=== PATIENT | male | born 1985 | race African-American/Black ===

== ENCOUNTER 2017-05-20 21:00 | Observation (INO) | payer MEDICARE ==
[2017-05-20] MEDS ORDERED: CEFAZOLIN 1 GM in DEXTROSE 5%-WATER - 50 ML IVPB ONE (22:14)
--- NOTE | 2017-05-20 22:23 | PDOC ---
History of Present Illness - General History Source: Patient Exam Limitations: No Limitations - History of Present Illness Initial Comments: 05/20/17 22:23 Patient is a 29 year old male with no significant past medical history who presents to the ED with right wrist/forearm swelling. Patient reports getting an insect bite on Friday 05/18 that has progressively worsened. He now reports swelling, redness and pain. He states that he is able to move the wrist. Patient denies any fever, chills, diaphoresis, nausea, vomiting, SOB, chest pain , weakness or lightheadedness. ALL - NKA <Capri Espinoza - Last Filed: 05/20/17 22:31> <Isela Bello - Last Filed: 05/20/17 23:45> - General Chief Complaint: Wound Stated Complaint: HAND INJURY Time Seen by Provider: 05/20/17 21:28 Past History <Capri Espinoza - Last Filed: 05/20/17 22:31> - Immunization History Immunization Up to Date: Yes - Psycho/Social/Smoking Cessation Hx Anxiety: No Suicidal Ideation: No Smoking Status: Yes Smoking History: Smoker current status UNK Have you smoked in the past 12 months: Yes Number of Cigarettes Smoked Daily: 2 Information on smoking cessation initiated: No Hx Alcohol Use: No Drug/Substance Use Hx: No Substance Use Type: None <Isela Bello - Last Filed: 05/20/17 23:45> - Past Medical History Allergies/Adverse Reactions: Allergies Allergy/AdvReac Type Severity Reaction Status Date / Time No Known Allergies Allergy Verified 02/23/15 11:15 Home Medications: Ambulatory Orders No Home Medications 0 dose .ROUTE UTDICT 05/31/12 Review of Systems - Review of Systems Able to Perform ROS?: Yes Comments:: 05/20/17 22:24 GENERAL/CONSTITUTIONAL: No fever or chills. No weakness. HEAD, EYES, EARS, NOSE AND THROAT: No change in vision. No ear pain or discharge. No sore throat. CARDIOVASCULAR: No chest pain or shortness of breath. RESPIRATORY: No cough, wheezing, or hemoptysis. GASTROINTESTINAL: No nausea, vomiting, diarrhea or constipation. GENITOURINARY: No dysuria, frequency, or change in urination. MUSCULOSKELETAL: (+)right wrist/forearm pain, redness and swelling. No neck or back pain. SKIN: (+)right forearm insect bite site. No rash NEUROLOGIC: No headache, vertigo, loss of consciousness, or change in strength/ sensation. ENDOCRINE: No increased thirst. No abnormal weight change. HEMATOLOGIC/LYMPHATIC: No anemia, easy bleeding, or history of blood clots. ALLERGIC/IMMUNOLOGIC: No hives or skin allergy. <Capri Espinoza - Last Filed: 05/20/17 22:31> *Physical Exam - Vital Signs Last Vital Signs Temp Pulse Resp BP Pulse Ox 124/72 99 05/20/17 21:24 05/20/17 21:24 - Physical Exam Comments: 05/20/17 22:29 GENERAL: Awake, alert, and fully oriented, in no acute distress HEAD: No signs of trauma EYES: PERRLA, EOMI, sclera anicteric, conjunctiva clear ENT: Auricles normal inspection, hearing grossly normal, nares patent, oropharynx clear without exudates. Moist mucosa NECK: Normal ROM, supple, no lymphadenopathy, JVD, or masses LUNGS: Breath sounds equal, clear to auscultation bilaterally. No wheezes, and no crackles HEART: Regular rate and rhythm, normal S1 and S2, no murmurs, rubs or gallops ABDOMEN: Soft, nontender, normoactive bowel sounds. No guarding, no rebound. No masses EXTREMITIES: (+)Right hand: insect bite surrounded by area of erythema and tenderness extended from proximal 3rd of forearm to 4th and 5th MCP joint. Normal range of motion. No clubbing or cyanosis. NEUROLOGICAL: Cranial nerves II through XII grossly intact. Normal speech, normal gait SKIN: Warm, Dry, normal turgor, no rashes noted. <Capri Espinoza - Last Filed: 05/20/17 22:31> - Vital Signs Last Vital Signs Temp Pulse Resp BP Pulse Ox 124/72 99 05/20/17 21:24 05/20/17 21:24 <Isela Bello - Last Filed: 05/20/17 23:45> ED Treatment Course - LABORATORY CBC & Chemistry Diagram: 05/20/17 22:24 05/20/17 22:24 <Capri Espinoza - Last Filed: 05/20/17 22:31> - LABORATORY CBC & Chemistry Diagram: 05/20/17 22:24 05/20/17 22:24 - RADIOLOGY Radiology Studies Ordered: Category Date Time Status HAND- RIGHT [RAD] Stat Radiology 05/20/17 22:10 Ordered <Isela Bello - Last Filed: 05/20/17 23:45> Medical Decision Making - Medical Decision Making 05/20/17 23:43 Pt presents to the ED with rapidly progressing cellulitis of the R hand. No signs of systemic infection, but does have elevated wbc count. Will treat with ancef and admit for continued IV antibiotics. <Isela Bello - Last Filed: 05/20/17 23:45> *DC/Admit/Observation/Transfer - Attestations Scribe Attestion: 05/20/17 22:25 Documentation prepared by [facility], acting as medical office clerk for Isela Bello MD. <Capri Espinoza - Last Filed: 05/20/17 22:31> - Discharge Dispostion Admit: Yes Decision to Admit order Date/Time: 05/20/17 23:45 <Isela Bello - Last Filed: 05/20/17 23:45> Diagnosis at time of Disposition: Cellulitis Qualifiers: Site of cellulitis: extremity Site of cellulitis of extremity: upper extremity Laterality: left Qualified Code(s): L03.114 - Cellulitis of left upper limb - Discharge Dispostion Condition at time of disposition: Good
[2017-05-20] MEDS ORDERED: CEFAZOLIN (PRE-DOCKED) 50 ML IVPB ONE (22:29)
[2017-05-20 22:31] LABS: BASOPHIL 0.7 % (0-2.0); EOSINOPHIL 1.3 % (0-4.5); MCH 31.9 pg (25.7-33.7); MCHC 33.8 g/dl (32.0-35.9); MEAN CELL VOLUME 94.2 fl (80-96); NEUTROPHILS 73.9 % (42.8-82.8); PLATELET COUNT 205 K/MM3 (134-434); RDW 12.8 % (11.9-15.9); WHITE BLOOD COUNT 15.4 K/mm3 (4.0-10.0)
[2017-05-20 22:58] LABS: ALBUMIN 4.3 g/dl (3.4-5.0); ALK PHOS 67 U/L (45-117); ANION GAP 4 (8-16); BILIRUBIN,TOTAL 0.7 mg/dL (0.2-1.0); CO2 31 mmol/L (21-32); CREATININE 1.3 mg/dL (0.7-1.3); GLUCOSE,RANDOM 83 mg/dL (74-106); SGOT/AST 24 U/L (15-37); SGPT/ALT 34 U/L (12-78); TOT PROT 7.7 g/dl (6.4-8.2)
[2017-05-20 23:04] LABS: C-REACTIVE PROTEIN 5.2 MG/DL (0.00-0.3)
[2017-05-20 23:40] LABS: ERYTHROCYTE SEDIMENTATION RATE 4 mm/hr (0-10)
--- NOTE | 2017-05-21 00:03 | PN ---
Teaching Attending Note Name of Resident: Suly Jones ATTENDING PHYSICIAN STATEMENT I saw and evaluated the patient. I reviewed the resident's note and discussed the case with the resident. I agree with the resident's findings and plan as documented. SUBJECTIVE: 31 yo M with no pmhx who presents with Right. wrist forarm erythema and edema after insect bite on 05/18. States that since sunday his erythema has spread from wrist to forearm. No fevers or chills, had good ROM of that hand as per pt. OBJECTIVE: Physical: VS: Vital Signs Period Temp Pulse Resp BP Sys/Brito Pulse Ox Last 24 Hr 124/72 99 GEN: NAD, Resting in bed HEENT: NCAT, PERRL, Throat without erythema or exudates CARD: RRR S1, S2 RESP: CTAB ABD: BSX4, NTD to palpation EXT: R. Wrist to forearm erythmatous, win pinoint bite on lateral wrist. No crepitus. L. Arm without edema, Erythema or exudates, pulses intact, CBCD WBC 15.4 K/mm3 (4.0-10.0) H 05/20/17 22:24 RBC 4.30 M/mm3 (4.00-5.60) 05/20/17 22:24 Hgb 13.7 GM/dL (11.7-16.9) 05/20/17 22:24 Hct 40.5 % (35.4-49) 05/20/17 22:24 MCV 94.2 fl (80-96) 05/20/17 22:24 MCHC 33.8 g/dl (32.0-35.9) 05/20/17 22:24 RDW 12.8 % (11.9-15.9) 05/20/17 22:24 Plt Count 205 K/MM3 (134-434) 05/20/17 22:24 MPV 9.0 fl (7.5-11.1) 05/20/17 22:24 CMP Sodium 137 mmol/L (136-145) 05/20/17 22:24 Potassium 3.8 mmol/L (3.5-5.1) 05/20/17 22:24 Chloride 102 mmol/L (98-107) 05/20/17 22:24 Carbon Dioxide 31 mmol/L (21-32) 05/20/17 22:24 Anion Gap 4 (8-16) L 05/20/17 22:24 BUN 19 mg/dL (7-18) H 05/20/17 22:24 Creatinine 1.3 mg/dL (0.7-1.3) 05/20/17 22:24 Creat Clearance w eGFR > 60 (>60) 05/20/17 22:24 Random Glucose 83 mg/dL (74-106) 05/20/17 22:24 Calcium 9.0 mg/dL (8.5-10.1) 05/20/17 22:24 Total Bilirubin 0.7 mg/dL (0.2-1.0) 05/20/17 22:24 AST 24 U/L (15-37) 05/20/17 22:24 ALT 34 U/L (12-78) 05/20/17 22:24 Alkaline Phosphatase 67 U/L (45-117) 05/20/17 22:24 Total Protein 7.7 g/dl (6.4-8.2) 05/20/17 22:24 Albumin 4.3 g/dl (3.4-5.0) 05/20/17 22:24 ASSESSMENT AND PLAN: 31 yo M with no pmhx who presents with Right. wrist forarm erythema and edema after insect bite on 05/18. Being admitted for Forarm Cellulitis on Right 1.) Right Forearm Cellulitis - C/W Cefazolin 1g Q 8 - No risk factors for MRSA - FU hand Xray - Chk. ESR/CRP 2.) Dvt Ppx - Low Risk - Ambulate Place in OBS
--- NOTE | 2017-05-21 00:16 | HP ---
CHIEF COMPLAINT: " Pain in the right forearm after insect bite" PCP: None HISTORY OF PRESENT ILLNESS: Patient is a 31 year old male with no significant past medical history presented to the ED with the chief complaint of pain in the right forearm after the insect bite x 2 days ago. As per the patient, he was apparently well until 2 days ago. While he was at a park 2days ago, there were lots of bugs around, didn't notice any insect bite but woke up the next day with pain in the right forearm. He saw a small pimple like lesion, squeezed it and a small amount of pus came out. Swelling started increasing in size, it was more painful, applied peroxide but didn't help hence he came in to the ED for further evaluation. He didn't take any medications at home. Denies fever, chills, rigors, sweating, chest pain, sob, cough, abdominal pain, nausea or vomiting. No rashes. Bowel/Bladder habit normal. Sleep/Appetite normal. ER course was notable for: (1) Afebrile, hemodynamically stable, WBC-15.4; CRP 5.2 (2) X-ray of the hand (3) Cefazolin 1gm Recent Travel: None PAST MEDICAL HISTORY: None PAST SURGICAL HISTORY: None Social History: Smoking: Occasional Alcohol: Occasional Drugs: Denies Family History: Unknown Allergies No Known Allergies Allergy (Verified 02/23/15 11:15) HOME MEDICATIONS: Home Medications Medication Instructions Recorded No Home Medications 0 dose .ROUTE UTDICT 05/31/12 REVIEW OF SYSTEMS CONSTITUTIONAL: Absent: fever, chills, diaphoresis, generalized weakness, malaise, loss of appetite, weight change HEENT: Absent: rhinorrhea, nasal congestion, throat pain, throat swelling, difficulty swallowing, mouth swelling, ear pain, eye pain, visual changes CARDIOVASCULAR: Absent: chest pain, syncope, palpitations, irregular heart rate, lightheadedness , peripheral edema RESPIRATORY: Absent: cough, shortness of breath, dyspnea with exertion, orthopnea, wheezing, stridor, hemoptysis GASTROINTESTINAL: Absent: abdominal pain, abdominal distension, nausea, vomiting, diarrhea, constipation, melena, hematochezia GENITOURINARY: Absent: dysuria, frequency, urgency, hesitancy, hematuria, flank pain, genital pain MUSCULOSKELETAL: Present: Swelling and redness around the insect bite area in the right forearm Absent: myalgia, arthralgia, joint swelling, back pain, neck pain SKIN: Absent: rash, itching, pallor HEMATOLOGIC/IMMUNOLOGIC: Absent: easy bleeding, easy bruising, lymphadenopathy, frequent infections ENDOCRINE: Absent: unexplained weight gain, unexplained weight loss, heat intolerance, cold intolerance NEUROLOGIC: Absent: headache, focal weakness or paresthesias, dizziness, unsteady gait, seizure, mental status changes, bladder or bowel incontinence PSYCHIATRIC: Absent: anxiety, depression, suicidal or homicidal ideation, hallucinations. PHYSICAL EXAMINATION GENERAL: Young male, sitting comfortably in bed, Awake, alert, and fully oriented, in no acute distress. HEAD: Normal with no signs of trauma. EYES: EOM intact, no pallor or icterus. EARS, NOSE, THROAT: Ears normal. Moist mucous membranes. NECK: Supple. LUNGS: Breath sounds equal, clear to auscultation bilaterally. No wheezes, and no crackles. No accessory muscle use. HEART: Regular rate and rhythm, normal S1 and S2 without murmur. ABDOMEN: Soft, nontender, not distended, normoactive bowel sounds, no guarding, no rebound, no masses. No hepatomegaly or splenomegaly. MUSCULOSKELETAL: Normal range of motion at all joints. No bony deformities or tenderness. No CVA tenderness. LEFT UPPER EXTREMITY: 2+ pulses, warm, well-perfused. No cyanosis. No clubbing. No peripheral edema. RIGHT UPPER EXTREMITY: A small papule like lesion, around 0.5 cm x 0.5 cm located in the medial aspect of the right forearm, erythema +(area marked) with minimal swelling approx 1. 5 x 2 cm; ROM normal, 2+ pulses, warm, well- perfused. No cyanosis. No clubbing. LOWER EXTREMITIES: 2+ pulses, warm, well-perfused. No calf tenderness. No peripheral edema. NEUROLOGICAL: No facial droop; power 5/5 in all ext; Cranial nerves II-XII intact. Normal speech. Gait normal. PSYCHIATRIC: Cooperative. Good eye contact. Appropriate mood and affect. SKIN: Warm, dry, normal turgor, no rashes or lesions noted, normal capillary refill. ASSESSMENT/PLAN: Patient is a 31 year old male with no significant past medical history presented to the ED with the chief complaint of pain in the right forearm after the insect bite x 2 days ago. # Cellulitis of the right forearm most likely secondary to an insect bite; no h/o fever; no antibiotics taken at home On arrival, he was afebrile, hemodynamically stable, WBC 15.4 with no shift, CRP- 5.2 In the ED, received IV Cefazolin Doesn't meet sepsis criteria, doesn't look infected, no risk factors of MRSA , patient clinically looks well, placed in Obs/Med-surg Continue IV Cefazolin 1gm Q8H Pending Hand x-ray report, pending Blood cultures If patient's WBC improves, is afebrile, would consider treating him outpatient. Repeat CBC with differential tomorrow # FEN Not on IV fluids, can tolerate PO Electrolytes WNL, will repeat Regular diet # Prophylaxis For DVT: On SCDs, ambulating For GI: Not indicated # Code status: Full Code # Dispo: Placed in observation. Duration of stay likely 1-2 days. Illness, Investigation and Plan of care explained to the patient. He verbalized understanding. Case seen and discussed with Dr. Momin. Visit type - Emergency Visit Emergency Visit: Yes ED Registration Date: 05/20/17 Care time: The patient presented to the Emergency Department on the above date and was hospitalized for further evaluation of their emergent condition. - New Patient This patient is new to me today: Yes Date on this admission: 05/20/17 - Critical Care Critical Care patient: No
[2017-05-21] MEDS ORDERED: ceFAZolin SODIUM 1 GM VIAL ONE ×2 (01:22→10:01)
[2017-05-21] MEDS ORDERED: DEXTROSE 5%-WATER - 50 ML IVPB ONE ×2 (01:22→10:01)
[2017-05-21] MEDS: CEFAZOLIN 1 GM in DEXTROSE 5%-WATER - 50 ML IVPB SCH ×2 (01:43→10:12)
[2017-05-21 03:01] VITALS: BMI 26.2
[2017-05-21 06:59] LABS: BASOPHIL 0.5 % (0-2.0); EOSINOPHIL 1.4 % (0-4.5); MCH 31.1 pg (25.7-33.7); MCHC 33.2 g/dl (32.0-35.9); MEAN CELL VOLUME 93.7 fl (80-96); MEAN PLT VOLUME 9.2 fl (7.5-11.1); NEUTROPHILS 70.4 % (42.8-82.8); PLATELET COUNT 200 K/MM3 (134-434); RDW 13.1 % (11.9-15.9); WHITE BLOOD COUNT 13.9 K/mm3 (4.0-10.0)
[2017-05-21 07:42] LABS: ANION GAP 8 (8-16); CALCIUM 8.8 mg/dL (8.5-10.1); CO2 30 mmol/L (21-32); CREATININE 1.1 mg/dL (0.7-1.3); GLUCOSE,RANDOM 87 mg/dL (74-106)
--- NOTE | 2017-05-21 10:56 | DS ---
Physical Exam: SUBJECTIVE: Patient seen and examined at the bedside, he reports his right hand is slightly improved, he is able to move it freely. OBJECTIVE: Will need Keflex 500mg BID x7 more days patient instructed to return to the ER if he experiences: -Fevers -Worsening swelling of your right hand -Streaks up your hand -Worsening pain and unable to move your hand -Elevated your hand at all times, it will help with the swelling - Betadine soaks with the infected area (apply 10 drops of betadine to 4-5 cups of warm water) twice per day After soaks, apply bacitracin to the infected area. Vital Signs Period Temp Pulse Resp BP Sys/Brito Pulse Ox Last 24 Hr 97.5 F-98.8 F 70-82 17-20 117-130/75-82 98-99 PHYSICAL EXAM GENERAL: Awake, alert, and fully oriented, in no acute distress. HEAD: Normal with no signs of trauma. EYES: EOM intact, no pallor or icterus. EARS, NOSE, THROAT: Ears normal. Moist mucous membranes. NECK: Supple. LUNGS: Breath sounds equal, clear to auscultation bilaterally. No wheezes, and no crackles. No accessory muscle use. HEART: Regular rate and rhythm, normal S1 and S2 without murmur. ABDOMEN: Soft, nontender, not distended, normoactive bowel sounds, no guarding, no rebound, no masses. No hepatomegaly or splenomegaly. MUSCULOSKELETAL: Normal range of motion at all joints. No bony deformities or tenderness. No CVA tenderness. LEFT UPPER EXTREMITY: 2+ pulses, warm, well-perfused. No cyanosis. No clubbing. No peripheral edema. RIGHT UPPER EXTREMITY: A small papule like lesion, around 0.5 cm x 0.5 cm located in the medial aspect of the right forearm, erythema + (area marked and erythema has not increased beyond markings) still with minimal swelling approx, ROM normal, 2+ pulses, warm, well-perfused. LOWER EXTREMITIES: 2+ pulses, warm, well-perfused. No calf tenderness. No peripheral edema. NEUROLOGICAL: No facial droop; power 5/5 in all ext; Cranial nerves II-XII intact. Normal speech. Gait normal. PSYCHIATRIC: Cooperative. Good eye contact. Appropriate mood and affect. SKIN: Warm, dry, normal turgor, no rashes or lesions noted, normal capillary refill. LABS Laboratory Results - last 24 hr 05/21/17 05/21/17 05:50 05:50 WBC 13.9 H RBC 4.37 Hgb 13.6 Hct 40.9 MCV 93.7 MCH 31.1 MCHC 33.2 RDW 13.1 Plt Count 200 MPV 9.2 Neutrophils % 70.4 Lymphocytes % 20.1 Monocytes % 7.6 Eosinophils % 1.4 Basophils % 0.5 Sodium 139 Potassium 3.7 Chloride 101 Carbon Dioxide 30 Anion Gap 8 BUN 16 Creatinine 1.1 Random Glucose 87 Calcium 8.8 HOSPITAL COURSE: Date of Admission:05/20/17 Date of Discharge: 05/21/17 ASSESSMENT/PLAN: Patient is a 31 year old male with no significant past medical history presented to the ED with the chief complaint of pain in the right forearm after the insect bite x 2 days ago. Cellulitis of the right forearm - improving/will need outpatient antibiotics A/P: Likely secondary to insect bite. Remains afebrile, WBC trending from 15.4>13.9 Received 3 doses of IV Cefazolin during hospital stay Will continue Keflex 500mg BID x 7 days Clinically continues to look well, does not meet sepsis criteria Blood cultures are pending Hand xray without any acute fracture, minimal swelling, old fracture noted Betadine soaks to affected area twice per day Bacitracin to area of insect bite/papule like lesion Hand elevation Sign/symptoms to return to the ER discussed with patient who verbalized understanding Disposition: Outpatient antibiotics x 7 days, Bacitracin to small papule like lesion, hand elevation, Betadine soaks. Follow up at clinic or Dr. Lloyd. Patient does not have insurance at this time but willing to go to the clinic for follow based on sliding scale. Minutes to complete discharge: 60 Discharge Summary Reason For Visit: CELLULITIS Current Active Problems Cellulitis (Acute) Condition: Fair - Instructions Diet, Activity, Other Instructions: Mr. Escudero: Your were treated at [facility] for cellulitis (skin infection) on your right outer aspect of your hand. Your antibitoc have been called into [facility]. Antibiotics: Keflex 500mg twice per day for 7 days, start taking Keflex tonight because we gave you antibiotics this morning intravenously. Take Keflex at 8am and 8pm until complete - 7 days total. It is important that you have a follow up visit with a physician within 1 week of discharge so that they can make sure your infection is getting better. Please go to either (1) [facility] [facility], [address] [place] [address], or (2) Dr. Lloyd (phone no. in your discharge packet). Please call his office first and see how much he may charge you the visit. Please return to the ER if you experience the following: -Fevers -Worsening swelling of your right hand -Streaks up your hand -Worsening pain and unable to move your hand Hand care: Elevated your hand at all times, it will help with the swelling Betadine soaks with the infected area (apply 10 drops of betadine to 4-5 cups of warm water) twice per day After soaks, apply bacitracin to the infected area. Bacitracin can be purchased over the counter. Please call me if you have any questions. Kelseyjuliane Quita @ [facility] [phone] Referrals: Quentin Sullivan MD [Staff Physician] - Disposition: HOME - Home Medications Comprehensive Discharge Medication List: Ambulatory Orders No Home Medications 0 dose .ROUTE UTDICT 05/31/12 Cephalexin [Keflex] 500 mg PO BID #14 capsule 05/21/17 This patient is new to me today: Yes Date on this admission: 05/21/17 Emergency Visit: Yes ED Registration Date: 05/20/17 Care time: The patient presented to the Emergency Department on the above date and was hospitalized for further evaluation of their emergent condition. Critical Care patient: No - Discharge Referral Referred to [facility] Yes Physician Referral: Quentin Lloyd MD ([facility])
[2017-05-21] MEDS ORDERED: BACITRACIN 15 GM TUBE TOPICAL OINTMENT TP SCH (11:00)
[2017-05-21 11:45] VITALS: BP 105/64; PULSE 77; TEMP 98.5
== END 2017-05-21 12:52 | disposition home or self-care (01) ==
LOC: JER 21:00 → JERBED 23:45 → J7W 05-21 01:07
PROVIDERS: ADMIT Internal Medicine; ATTEND Nurse Practitioner Family
DX: L03.113 Cellulitis of right upper limb (principal); S50.861A Insect bite (nonvenomous) of right forearm, initial encounter; W57.XXXA Bitten or stung by nonvenomous insect and other nonvenomous arthropods, initial encounter; Y93.89 Activity, other specified; Y92.830 Public park as the place of occurrence of the external cause; Y99.8 Other external cause status
CPT/HCPCS: 36415; 73130-TC-RT; 80048; 80053; 85025; 85651; 86140; 87040; 99285-25; G0378

== ENCOUNTER 2017-05-26 21:34 | Emergency (ER) | payer SELFPAY ==
[2017-05-26 21:41] VITALS: BP 129/78; PULSE 73; TEMP 98; BMI 26.3
--- NOTE | 2017-05-26 22:42 | PDOC ---
History of Present Illness - General History Source: Patient, Old Records Exam Limitations: No Limitations - History of Present Illness Initial Comments: 05/26/17 22:58 Patient is a 31 year old male with past medical history of recent discharge () who presents to the ED with right wrist swelling. Patient reports getting an insect bite on Friday 05/18 that has progressively worsened. The patient states that his does not have any pain. He denies fever, nausea, shortness of breath, and vomiting. <Vignesh Tejada - Last Filed: 05/27/17 01:09> <Becki Watson - Last Filed: 05/30/17 05:25> - General Chief Complaint: Revisit,Wound Recheck Stated Complaint: ER REVIST Time Seen by Provider: 05/26/17 22:38 Past History <Vignesh Tejada - Last Filed: 05/27/17 01:09> - Past Medical History Other medical history: denies - Immunization History Immunization Up to Date: Yes - Suicide/Smoking/Psychosocial Hx Smoking Status: Yes Smoking History: Current every day smoker Have you smoked in the past 12 months: Yes Number of Cigarettes Smoked Daily: 1 Information on smoking cessation initiated: No 'Breaking Loose' booklet given: 05/21/17 Hx Alcohol Use: No Drug/Substance Use Hx: No Substance Use Type: None <Becki Watson - Last Filed: 05/30/17 05:25> - Past Medical History Allergies/Adverse Reactions: Allergies Allergy/AdvReac Type Severity Reaction Status Date / Time No Known Allergies Allergy Verified 05/26/17 21:41 Home Medications: Ambulatory Orders Cephalexin [Keflex] 500 mg PO BID #14 capsule 05/21/17 Review of Systems - Review of Systems Able to Perform ROS?: Yes Comments:: 05/26/17 23:48 GENERAL/CONSTITUTIONAL: No fever or chills. No weakness. SKIN: (+) Fluid filled bug bite on right wrist <Vignesh Tejada - Last Filed: 05/27/17 01:09> *Physical Exam - Vital Signs Last Vital Signs Temp Pulse Resp BP Pulse Ox 98 F 73 18 129/78 97 05/26/17 21:37 05/26/17 21:37 05/26/17 21:37 05/26/17 21:37 05/26/17 21:37 - Physical Exam Comments: 05/26/17 23:48 GENERAL: Awake, alert, and fully oriented, in no acute distress HEAD: No signs of trauma EYES: PERRLA, EOMI, sclera anicteric, conjunctiva clear ENT: Auricles normal inspection, hearing grossly normal, nares patent, oropharynx clear without exudates. Moist mucosa NECK: Normal ROM, supple, no lymphadenopathy, JVD, or masses LUNGS: Breath sounds equal, clear to auscultation bilaterally. No wheezes, and no crackles HEART: Regular rate and rhythm, normal S1 and S2, no murmurs, rubs or gallops ABDOMEN: Soft, nontender, normoactive bowel sounds. No guarding, no rebound. No masses EXTREMITIES: (+) 3 cm bolus lesion no surround erythema no induration Large fluid filled insect bite. Normal range of motion, no edema. No clubbing or cyanosis. No cords, erythema, or tenderness NEUROLOGICAL: Cranial nerves II through XII grossly intact. Normal speech, normal gait SKIN: Warm, Dry, normal turgor, no rashes or lesions noted. <Vignesh Tejada - Last Filed: 05/27/17 01:09> - Vital Signs Last Vital Signs Temp Pulse Resp BP Pulse Ox 98 F 73 18 129/78 97 05/26/17 21:37 05/26/17 21:37 05/26/17 21:37 05/26/17 21:37 05/26/17 21:37 <Becki Watson - Last Filed: 05/30/17 05:25> Procedures - Incision and Drainage I&D Site: Right: Arm (Wrist) Progress: 05/27/17 01:10 Area was prepped with alcohol and bolus was punctured with sterile 25 gauge needle 2 times with impression of serosanguinous fluid. Patient tolerated well + hemostasis. <Vignesh Tejada - Last Filed: 05/27/17 01:09> Medical Decision Making - Medical Decision Making CORRECTION to scribe note- Procedure note should read that the "bulla" was punctured, not "bolus" as is written. <Becki Watson - Last Filed: 05/30/17 05:25> *DC/Admit/Observation/Transfer - Attestations Scribe Attestion: 05/26/17 23:48 Documentation prepared by Vignesh Tejada, acting as medical terminologist for Becki Watson MD. <Vignesh Tejada - Last Filed: 05/27/17 01:09> - Discharge Dispostion Admit: No <Becki Watson - Last Filed: 05/30/17 05:25> Diagnosis at time of Disposition: Skin bulla - Discharge Dispostion Disposition: HOME Condition at time of disposition: Stable - Patient Instructions Printed Discharge Instructions: DI for Blisters Additional Instructions: DRESS WITH DRY GAUZE UNTIL THE WOUND DRIES. RETURN IF ANY SEVERE PAIN, SWELLING , REDNESS, OR ANY OTHER CONCERNS.
== END 2017-05-26 23:14 | disposition home or self-care (01) ==
LOC: JER 21:34
PROC: 0H9DXZZ Drainage of Right Lower Arm Skin, External Approach (ICD-10-PCS; principal; 2017-05-26)
DX: R23.8 Other skin changes (principal); S60.861A Insect bite (nonvenomous) of right wrist, initial encounter; W57.XXXA Bitten or stung by nonvenomous insect and other nonvenomous arthropods, initial encounter; Y93.89 Activity, other specified; Y92.89 Other specified places as the place of occurrence of the external cause; Y99.8 Other external cause status; F17.210 Nicotine dependence, cigarettes, uncomplicated
CPT/HCPCS: 99281-25

== ENCOUNTER 2018-01-08 11:03 | Emergency (ER) | payer OTHER ==
[2018-01-08 11:08] VITALS: BP 130/82; PULSE 85; TEMP 98.3; BMI 26.6
--- NOTE | 2018-01-08 11:53 | PDOC ---
History of Present Illness - General Chief Complaint: Pain Stated Complaint: SWOLLEN FEET Time Seen by Provider: 01/08/18 11:18 - History of Present Illness Initial Comments: 32-year-old male presents for evaluation of bilateral foot pain after playing basketball. He states he had wounds on the bottom of his feet because his sneakers were too big. He is here for further evaluation. He denies prior problems. Describes this pain is achy at times exacerbated with weightbearing only with rest and free of radiation or prior problems like this in the past 01/08/18 11:48 Past History - Past Medical History Allergies/Adverse Reactions: Allergies Allergy/AdvReac Type Severity Reaction Status Date / Time No Known Allergies Allergy Verified 01/08/18 11:05 COPD: No - Immunization History Immunization Up to Date: Yes - Suicide/Smoking/Psychosocial Hx Smoking Status: Yes Smoking History: Current every day smoker Have you smoked in the past 12 months: Yes Number of Cigarettes Smoked Daily: 1 Information on smoking cessation initiated: Yes 'Breaking Loose' booklet given: 01/08/18 Hx Alcohol Use: No Drug/Substance Use Hx: No Substance Use Type: None Review of Systems - Review of Systems All Other Systems: Reviewed and Negative *Physical Exam - Vital Signs Last Vital Signs Temp Pulse Resp BP Pulse Ox 98.3 F 85 18 130/82 100 01/08/18 11:06 01/08/18 11:06 01/08/18 11:06 01/08/18 11:06 01/08/18 11:06 - Physical Exam Comments: Bilateral feet and ankles normal skin color and temperature is full range of motion which is nonpainful no tenderness there are 2 circumferential wounds on the plantar aspect of the lateral feet about a centimeter in circumference. There is loose skin covering the blisters that have been opened. The surrounding skin is normal color and temperature. There is no indication of infection the wounds are dry. 01/08/18 11:49 Medical Decision Making - Medical Decision Making Recommended to keep the wounds clean and dry may wash with soap and water and leave open to air cover when weight-bearing return to the emergency room if symptoms increase or go and resolve prior to follow-up with his primary care doctor 01/08/18 11:50 *DC/Admit/Observation/Transfer Diagnosis at time of Disposition: Blister - Discharge Dispostion Disposition: HOME Condition at time of disposition: Stable Decision to Admit order: No - Referrals Referrals: Rowena Shah MD [Primary Care Provider] - - Patient Instructions Printed Discharge Instructions: Blisters, DI for Blisters Additional Instructions: Keep wounds clean and dry may wash with soap and water. Weight-bear as tolerated. Return to the emergency room if symptoms go on resolve or worsen prior to follow-up with her primary care provider - Post Discharge Activity
== END 2018-01-08 12:14 | disposition home or self-care (01) ==
LOC: JERFT 11:03
DX: S90.822A Blister (nonthermal), left foot, initial encounter (principal); S90.821A Blister (nonthermal), right foot, initial encounter; X50.0XXA Overexertion from strenuous movement or load, initial encounter; Y93.67 Activity, basketball; Y92.310 Basketball court as the place of occurrence of the external cause; Y99.8 Other external cause status
CPT/HCPCS: 99281-25

== ENCOUNTER 2019-06-23 03:56 | Emergency (ER) | payer BC, OTHER ==
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
[2019-06-23 04:29] VITALS: BMI 26.6
[2019-06-23] MEDS ORDERED: METHOCARBAMOL 500 MG TABLET PO ONE (04:32)
[2019-06-23] MEDS ORDERED: KETOROLAC TROMETHAMINE 60 MG/2 ML VIAL IM ONE (04:32)
[2019-06-23] MEDS ORDERED: LIDOCAINE 5% TOPICAL PATCH TP ONE (04:33)
[2019-06-23] MEDS ORDERED: METHOCARBAMOL 500 MG TABLET ONE (04:39)
[2019-06-23] MEDS ORDERED: KETOROLAC TROMETHAMINE 60 MG/2 ML VIAL ONE (04:40)
[2019-06-23] MEDS ORDERED: LIDOCAINE 5% TOPICAL PATCH ONE (04:40)
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
[2019-06-23] MEDS ORDERED: ACETAMINOPHEN 500 MG TABLET (FP) PO ONE (12:43)
[2019-06-23] MEDS ORDERED: ACETAMINOPHEN 325 MG TABLET (FP) ONE (12:56)
[2019-06-23 13:21] VITALS: BP 139/81; PULSE 68; TEMP 98.4
--- NOTE | 2019-06-23 15:53 | EKG ---
Test Reason : Blood Pressure : / mmHG Vent. Rate : 058 BPM Atrial Rate : 058 BPM P-R Int : 166 ms QRS Dur : 090 ms QT Int : 400 ms P-R-T Axes : 052 064 059 degrees QTc Int : 392 ms SINUS BRADYCARDIA OTHERWISE NORMAL ECG NO PREVIOUS ECGS AVAILABLE Confirmed by DARIAN RODRIGUEZ MD ([id number]) on 06/23/2019 3:53:05 PM Referred By: Confirmed By:DARIAN RODRIGUEZ MD
[2019-06-23] MEDS ORDERED: LIDOCAINE PATCH REMOVAL MC SCH (22:00)
== END 2019-06-23 14:20 | disposition short-term general hospital (02) ==
LOC: JER 03:56
DX: G95.20 Unspecified cord compression (principal); S14.159A Other incomplete lesion at unspecified level of cervical spinal cord, initial encounter; V49.88XA Car occupant (driver) (passenger) injured in other specified transport accidents, initial encounter; Y92.414 Local residential or business street as the place of occurrence of the external cause; W22.12XA Striking against or struck by front passenger side automobile airbag, initial encounter; Y93.89 Activity, other specified; Y99.8 Other external cause status
CPT/HCPCS: 72125-TC; 72128-TC; 72141-TC; 93005; 93010; 99285-25

== ENCOUNTER 2019-09-14 20:30 | Emergency (ER) | payer BC ==
[2019-09-14 20:41] VITALS: BP 118/76; PULSE 82; TEMP 97.8; BMI 26.6
[2019-09-14] MEDS ORDERED: KETOROLAC TROMETHAMINE 60 MG/2 ML VIAL IM ONE (21:10)
[2019-09-14] MEDS ORDERED: KETOROLAC TROMETHAMINE 60 MG/2 ML VIAL ONE (21:13)
--- NOTE | 2019-09-14 21:35 | PDOC ---
History of Present Illness - General Chief Complaint: Back Pain Stated Complaint: LOWER BACK PAIN Time Seen by Provider: 09/14/19 21:05 - History of Present Illness Initial Comments: 09/14/19 21:32 33-year-old male without comorbidities presents for lower back pain after fall 3 days ago. No radicular or systemic symptoms. No loss of bowel bladder function or saddle paresthesias. Past History - Past Medical History Allergies/Adverse Reactions: Allergies Allergy/AdvReac Type Severity Reaction Status Date / Time No Known Allergies Allergy Verified 09/05/19 11:14 Home Medications: Ambulatory Orders Cyclobenzaprine HCl [Flexeril 10 mg] 10 mg PO HS PRN #10 tablet 09/14/19 Ibuprofen [Motrin -] 600 mg PO TID #30 tablet 09/14/19 COPD: No - Immunization History Immunization Up to Date: Yes - Psycho Social/Smoking Cessation Hx Smoking Status: Yes Smoking History: Current some day smoker Have you smoked in the past 12 months: Yes Number of Cigarettes Smoked Daily: 2 Information on smoking cessation initiated: No 'Breaking Loose' booklet given: 01/08/18 Hx Alcohol Use: No Drug/Substance Use Hx: No Substance Use Type: None Review of Systems - Review of Systems Musculoskeletal: Yes: Back Pain *Physical Exam - Vital Signs Last Vital Signs Temp Pulse Resp BP Pulse Ox 97.8 F 82 19 118/76 97 09/14/19 20:37 09/14/19 20:37 09/14/19 20:37 09/14/19 20:37 09/14/19 20:37 - Physical Exam 09/14/19 21:32 Lumbar spine skin color and temperature normal range of motion is limited. No midline tenderness. Moderate right and left paralumbar musculature spasm and tenderness 5 out of 5 strength bilateral lower extremities without gross sensorimotor deficits neurovascular intact. ED Treatment Course - RADIOLOGY Radiology Studies Ordered: Category Date Time Status SPINE-LUMBAR ONLY [RAD] Stat Radiology 09/14/19 21:10 Taken - Medications Given in the ED: ED Medications Discontinued Medications Generic Name Dose Route Start Last Admin Trade Name Freq PRN Reason Stop Dose Admin Ketorolac Tromethamine 60 mg 09/14/19 21:10 09/14/19 21:30 Toradol Injection - IM 09/14/19 21:11 60 mg ONCE ONE Administration Medical Decision Making - Medical Decision Making 09/14/19 21:33 X-rays of the lumbar spine show mild straightening of the lumbar lordosis will treat with Toradol in the emergency room Motrin and Flexeril at home follow-up with neurosurgery Discharge - Discharge Information Problems reviewed: Yes Clinical Impression/Diagnosis: Lumbar contusion, Lumbar strain Condition: Stable Disposition: HOME - Admission No - Follow up/Referral Referrals: Sukhi Jean MD, [facility] [Staff Physician] - - Patient Discharge Instructions Additional Instructions: Return to the emergency room for worsening symptoms. Do not take the Motrin until tomorrow evening at this time. You were given an injection of a long- acting anti-inflammatory. You may start the muscle relaxer 1 tablet before bedtime this will help your back pain. Follow-up with neurosurgery in 2 to 3 days for further evaluation and treatment options and return to the emergency room should symptoms worsen. - Post Discharge Activity Work/Back to School Note: Back to Work
== END 2019-09-14 21:43 | disposition home or self-care (01) ==
LOC: JERFT 20:30
PROC: 3E0233Z Introduction of Anti-inflammatory into Muscle, Percutaneous Approach (ICD-10-PCS; principal; 2019-09-14)
DX: S39.012A Strain of muscle, fascia and tendon of lower back, initial encounter (principal); S30.0XXA Contusion of lower back and pelvis, initial encounter; M62.830 Muscle spasm of back; W10.8XXA Fall (on) (from) other stairs and steps, initial encounter; Y93.89 Activity, other specified; Y92.211 Elementary school as the place of occurrence of the external cause; Y99.0 Civilian activity done for income or pay
CPT/HCPCS: 72100-TC-FY; 99282-25

== ENCOUNTER 2021-06-22 01:46 | Emergency (ER) | payer BC ==
[2021-06-22 02:02] VITALS: BP 136/86; PULSE 100; TEMP 98.2; BMI 26.7
[2021-06-22] MEDS ORDERED: ONDANSETRON *ODT* 4 MG TABLET SL ONE (02:38)
[2021-06-22] MEDS ORDERED: ONDANSETRON *ODT* 4 MG TABLET ONE (02:50)
== END 2021-06-22 03:10 | disposition home or self-care (01) ==
LOC: JER 01:46
DX: S01.502A Unspecified open wound of oral cavity, initial encounter (principal); Z48.814 Encounter for surgical aftercare following surgery on the teeth or oral cavity; Y83.8 Other surgical procedures as the cause of abnormal reaction of the patient, or of later complication, without mention of misadventure at the time of the procedure
CPT/HCPCS: 99283-25; Q0162

== ENCOUNTER 2024-05-01 03:52 | Inpatient (IN) | payer OTHER ==
[2024-05-01] MEDS ORDERED: THROMBIN (BOVINE) 5,000 UNIT VIAL TP ONE (07:31)
[2024-05-01] MEDS ORDERED: ceFAZolin SODIUM 1 GM VIAL ONE (07:31)
[2024-05-01] MEDS ORDERED: LIDOCAINE HCL/PF 2% SDV 5ML VIAL ONE (07:49)
[2024-05-01] MEDS ORDERED: MIDAZOLAM HCL 2 MG/2 ML SINGLE DOSE VIAL ONE (07:49)
[2024-05-01] MEDS ORDERED: PROPOFOL 120 ML ONE (07:49)
[2024-05-01] MEDS ORDERED: SUCCINYLCHOLINE CHLORIDE 200 MG/10 ML SYRINGE ONE (07:49)
[2024-05-01] MEDS: ceFAZolin SODIUM 1 GM VIAL IVPB ONE (08:38)
[2024-05-01] MEDS ORDERED: HYDROmorphone HCl 2 MG/ML VIAL ONE (08:56)
[2024-05-01] MEDS ORDERED: PROPOFOL 60 ML ONE ×2 (09:13→10:20)
[2024-05-01] MEDS ORDERED: PROPOFOL 40 ML ONE (09:41)
[2024-05-01] MEDS ORDERED: METHYLENE BLUE 50 MG/10 ML AMPUL ONE (10:28)
[2024-05-01] MEDS ORDERED: PROPOFOL 20 ML ONE ×6 (10:35→11:45)
[2024-05-01] MEDS ORDERED: diphenhydrAMINE HCL 25 MG CAPSULE (FP) PO PRN (12:38)
[2024-05-01] MEDS ORDERED: ONDANSETRON 4 MG/2 ML VIAL IVPUSH PRN ×2 (12:38→13:02)
[2024-05-01] MEDS ORDERED: LACTATED RINGERS SOLUTION 1,000 ML/1,000 ML INFUS.BAG IV SCH (12:45)
[2024-05-01] MEDS: ACETAMINOPHEN 1000 MG/100 ML BAG IVPB ONE (13:56)
[2024-05-01] MEDS: ACETAMINOPHEN INJECTION 100 ML ONE (13:56)
[2024-05-01] MEDS: DOCUSATE SODIUM 100 MG CAPSULE (FP) PO SCH (13:58)
[2024-05-01] MEDS ORDERED: HEPARIN NA (PORCINE) 5,000 UNITS/ML 1ML VIAL SQ SCH (14:00)
[2024-05-01] MEDS: LACTATED RINGERS SOLUTION 1,000 ML IV SCH (15:38)
[2024-05-01] MEDS: morphine SULFATE 4 MG/ML VIAL IVPUSH PRN (17:04)
[2024-05-01] MEDS: CEFAZOLIN 1 GM in DEXTROSE 5%-WATER - 50 ML IVPB SCH (17:05)
[2024-05-01] MEDS: AMPICILLIN NA/SULBACTAM NA 3 GM in SODIUM CHLORIDE 100 ML IVPB SCH (21:56)
[2024-05-02 06:52] LABS: HEMATOCRIT 37.9 % (35.4-49); HEMOGLOBIN 12.6 GM/dL (11.7-16.9); MCH 31.9 pg (25.7-33.7); MCHC 33.2 g/dl (32.0-35.9); MEAN CELL VOLUME 96.1 fl (80-96); MEAN PLT VOLUME 8.5 fl (7.5-11.1); PLATELET COUNT 244 10^3/uL (134-434); RBC 3.94 M/mm3 (4.00-5.60); RDW 13.2 % (11.9-15.9); WHITE BLOOD COUNT 14.6 K/mm3 (4.0-10.0)
[2024-05-02 07:18] LABS: POTASSIUM 3.8 mmol/L (3.5-5.1)
[2024-05-02 07:19] LABS: BLOOD UREA NITROGEN 9.2 mg/dL (7-18); CALCIUM 8.8 mg/dL (8.5-10.1)
[2024-05-02 07:23] LABS: CREATININE 1.1 mg/dL (0.55-1.3)
[2024-05-02] MEDS: HEPARIN NA (PORCINE) 5,000 UNITS/ML 1ML VIAL SQ SCH (09:31)
[2024-05-02] MEDS: FOLIC ACID 1 MG TABLET (FP) PO SCH (09:31)
[2024-05-02] MEDS: PANTOPRAZOLE SODIUM 40 MG VIAL IVPUSH SCH (09:31)
[2024-05-02 14:18] VITALS: BMI 28.1
[2024-05-02] MEDS: ACETAMINOPHEN 1000 MG/100 ML BAG IVPB ONE (17:42)
[2024-05-02] MEDS: MELATONIN 5 MG TABLETS PO ONE (21:41)
[2024-05-03 08:22] VITALS: TEMP 98.2
[2024-05-03 14:15] VITALS: BP 131/82; PULSE 88; RESP 15
== END 2024-05-03 18:30 | disposition home or self-care (01) | DRG 321 ==
LOC: J2C 03:52 → JICU 15:28
PROVIDERS: ADMIT Neurological Surgery; ATTEND Neurological Surgery
PROC: 0RT30ZZ Resection of Cervical Vertebral Disc, Open Approach (ICD-10-PCS; 2024-05-01)
PROC: 01N10ZZ Release Cervical Nerve, Open Approach (ICD-10-PCS; 2024-05-01)
PROC: 0WQ60ZZ Repair Neck, Open Approach (ICD-10-PCS; 2024-05-01)
PROC: 4A10X4G Monitoring of Central Nervous Electrical Activity, Intraoperative, External Approach (ICD-10-PCS; 2024-05-01)
PROC: 0DH673Z Insertion of Infusion Device into Stomach, Via Natural or Artificial Opening (ICD-10-PCS; 2024-05-01)
PROC: 0RG20A0 Fusion of 2 or more Cervical Vertebral Joints with Interbody Fusion Device, Anterior Approach, Anterior Column, Open Approach (ICD-10-PCS; principal; 2024-05-01 08:00)
DX: M48.02 Spinal stenosis, cervical region (principal); U07.1 COVID-19; G95.89 Other specified diseases of spinal cord; K91.72 Accidental puncture and laceration of a digestive system organ or structure during other procedure; M50.023 Cervical disc disorder at C6-C7 level with myelopathy; Y83.8 Other surgical procedures as the cause of abnormal reaction of the patient, or of later complication, without mention of misadventure at the time of the procedure; M54.12 Radiculopathy, cervical region
CPT/HCPCS: 36415; 72040-TC; 74220-TC-FY; 80048; 82962; 85027; 86850; 86900; 86901; 87635; 88304-TC; 94010; 94760; 97116-GP; 97162-GP; C1713; C1889; J0131; J1644; Q9968